=== PATIENT | male | born 1970 | race Caucasian/White ===

== ENCOUNTER 2017-07-09 15:48 | Emergency (ER) | payer MEDICARE, MEDICAID ==
[~2017-07-09] VITALS: Ht 172.7 cm; Wt 90.7 kg
[~2017-07-09 15:48] MED LIST: FENTANYL PA50 MCG/HR TRANSDERM; HYSINGLA ER20 MG PO; OXYCODONE HCL 55 MG PO; OXYCODONE HCL15 MG PO; OXYCODONE HCL30 MG PO; PENICILLIN VK500 MG PO
[2017-07-09] MEDS ORDERED: OXYCODONE HCL 55 MG PO (18:01)
[2017-07-09 18:11] VITALS: BP 128/84
== END 2017-07-09 18:12 | disposition home or self-care (01) ==
LOC: M.ERS 15:48
DX: M54.41 Lumbago with sciatica, right side (principal); G89.29 Other chronic pain; F17.210 Nicotine dependence, cigarettes, uncomplicated; Z88.1 Allergy status to other antibiotic agents; Z88.5 Allergy status to narcotic agent; W18.30XA Fall on same level, unspecified, initial encounter; Y93.89 Activity, other specified; Y92.89 Other specified places as the place of occurrence of the external cause; Y99.8 Other external cause status

== ENCOUNTER 2017-10-13 21:38 | Emergency (ER) | payer MEDICARE, MEDICAID ==
[~2017-10-13] VITALS: Ht 172.7 cm; Wt 90.7 kg
[2017-10-13 22:17] LABS: URINE BILIRUBIN NEGATIVE (Negative); URINE BLOOD NEGATIVE (Negative); URINE CLARITY CLEAR; URINE COLOR YELLOW; URINE GLUCOSE-RANDOM NEGATIVE (Negative); URINE KETONES NEGATIVE (Negative); URINE LEUKOCYTES-REFLEX NEGATIVE (Negative); URINE NITRITE-REFLEX NEGATIVE (Negative); URINE PROTEIN NEGATIVE (Negative); URINE UROBILINOGEN 0.2 E.U./dl (0.2-1.0)
[2017-10-13 22:18] LABS: ABSOLUTE BASOPHILS 0.1 thou/uL (0.0-0.2); ABSOLUTE EOSINOPHILS 0.2 thou/uL (0.0-0.7); ABSOLUTE LYMPHOCYTES 3.5 thou/uL (0.8-5.3); ABSOLUTE MONOCYTES 0.9 thou/uL (0.0-1.2); ABSOLUTE NEUTROPHILS 7.7 thou/uL (1.6-8.1); BASOPHILS 0.4 %; EOSINOPHILS 1.2 %; HEMATOCRIT 50.5 % (42.0-52.0); LYMPHOCYTES 28.5 %; MCH 31.2 pg (26.0-34.0); MCHC 33.7 g/dL (28.0-37.0); MCV 92.7 fL (80.0-100.0); MONOCYTES 7.1 %; MPV 8.8 fl. (7.2-11.1); NUCLEATED RBCS 0 /100WBC; PLATELET COUNT* 317 thou/uL (150-400); POLYS 62.8 %; RBC 5.45 mil/uL (4.50-6.00); RDW-CV 14.3 % (10.5-14.5); WBC 12.3 thou/uL (4.0-11.0)
[2017-10-13 22:24] LABS: CALCIUM 9.4 mg/dL (8.5-10.1); CREATININE 1.1 mg/dL (0.6-1.3); POTASSIUM 3.9 mmol/L (3.5-5.1)
[2017-10-13 22:29] LABS: ALBUMIN 4.3 g/dL (3.4-5.0); TOTAL BILIRUBIN 0.3 mg/dL (<0.1-1.0); TOTAL PROTEIN 7.9 g/dL (6.4-8.2)
[2017-10-13 23:03] LABS: AMP/METHAMP Negative (Negative); BARBITURATES Negative (Negative); BENZODIAZEPINES Negative (Negative); COCAINE Negative (Negative); METHADONE Negative (Negative); OPIATES Negative (Negative); PCP Negative (Negative); THC POSITIVE (Negative)
[2017-10-14] MEDS ORDERED: CIPROFLOXACIN500 M1 PO (00:21)
[2017-10-14] MEDS ORDERED: ZOFRAN ODT4 MG PO (00:21)
[2017-10-14] MEDS ORDERED: FLAGYL500 MG PO (00:21)
[2017-10-14 00:48] VITALS: BP 109/66
== END 2017-10-14 00:49 | disposition home or self-care (01) ==
LOC: M.ERS 21:38
PROVIDERS: Emergency Medicine
DX: K57.92 Diverticulitis of intestine, part unspecified, without perforation or abscess without bleeding (principal); F17.210 Nicotine dependence, cigarettes, uncomplicated; Z88.8 Allergy status to other drugs, medicaments and biological substances

== ENCOUNTER 2017-10-18 21:08 | Inpatient (IN) | payer MEDICARE, MEDICAID ==
[~2017-10-18] VITALS: Ht 172.7 cm; Wt 90.7 kg
--- NOTE | ~2017-10-18 | PROC ---
[address] [address] PROCEDURE REPORT Name: DANIELE SANCHEZ Room: [address] IN M.R.#: [id number] Admission: 10/19/17 Attend Phys: Eder Tavares MD Discharge: 10/22/17 Date of : 74 Report #: [id number] THIS REPORT FOR: //name// For GI report, please see the Provation report in Perceptive 7 content. By: 0650Medical Records Staff ZEESHAN /ERIC
[~2017-10-18 21:08] MED LIST changes: +CIPROFLOXACIN500 M1 PO; +FLAGYL500 MG PO; +ZOFRAN ODT4 MG PO
[2017-10-18 21:40] VITALS: BP 143/121
[2017-10-18 22:04] LABS: ABSOLUTE LYMPHOCYTES 2.5 thou/uL (0.8-5.3); ABSOLUTE MONOCYTES 0.5 thou/uL (0.0-1.2); ABSOLUTE NEUTROPHILS 4.9 thou/uL (1.6-8.1); BASOPHILS 0.6 %; EOSINOPHILS 0.4 %; HEMATOCRIT 48.6 % (42.0-52.0); HEMOGLOBIN 16.8 gm/dL (14.0-18.0); LYMPHOCYTES 31.7 %; MCH 31.5 pg (26.0-34.0); MCHC 34.5 g/dL (28.0-37.0); MCV 91.2 fL (80.0-100.0); MONOCYTES 5.9 %; MPV 8.9 fl. (7.2-11.1); NUCLEATED RBCS 0 /100WBC; PLATELET COUNT* 315 thou/uL (150-400); POLYS 61.4 %; RBC 5.34 mil/uL (4.50-6.00); RDW-CV 14.5 % (10.5-14.5)
[2017-10-18 22:11] LABS: CALCIUM 9.2 mg/dL (8.5-10.1)
[2017-10-18 22:15] LABS: ALBUMIN 4.1 g/dL (3.4-5.0); TOTAL BILIRUBIN 0.4 mg/dL (<0.1-1.0); TOTAL PROTEIN 7.5 g/dL (6.4-8.2)
[2017-10-18 23:42] LABS: URINE BILIRUBIN NEGATIVE (Negative); URINE BLOOD NEGATIVE (Negative); URINE CLARITY CLEAR; URINE COLOR YELLOW; URINE GLUCOSE-RANDOM NEGATIVE (Negative); URINE KETONES NEGATIVE (Negative); URINE LEUKOCYTES-REFLEX NEGATIVE (Negative); URINE NITRITE-REFLEX NEGATIVE (Negative); URINE PROTEIN NEGATIVE (Negative); URINE UROBILINOGEN 0.2 E.U./dl (0.2-1.0)
[2017-10-18 23:49] LABS: AMP/METHAMP Negative (Negative); BARBITURATES Negative (Negative); BENZODIAZEPINES Negative (Negative); COCAINE Negative (Negative); METHADONE Negative (Negative); OPIATES Negative (Negative); PCP Negative (Negative); THC POSITIVE (Negative)
[2017-10-19] VITALS (8 sets, daily range): BP systolic 110–134; BP diastolic 68–95
[2017-10-19 12:05] LABS: HEMATOCRIT 45.4 % (42.0-52.0); HEMOGLOBIN 15.3 gm/dL (14.0-18.0)
--- NOTE | 2017-10-19 14:47 | NUR ---
PT REQUESTED TO HAVE A MEDICATION TO MAKE HIM GO TO SLEEP. THIS NURSE CALLED DR. BERMUDEZ DID PUT IN ORDERS FOR MELATONIN, HOWEVER, DR. BERMUDEZ STATES THAT HE DOES NOT WANT THE PATIENT TO HAVE IT UNTIL LATER TONIGHT. PT NOTIFIED.
--- NOTE | 2017-10-19 18:21 | NUR ---
ARRIVED TO PREOP AREA FOR HOLDING UNTIL ROOM AVAILABLE. SETTLED WITH CALL LIGHT WITH REACH. PT REPORTING CONSTANT SEVERE ABDOMINAL PAIN. TAKING IN CLEAR LIQUIDS. MEDICATING WITH MORPHINE EVERY 2 HOURS ORDERED WITH MINIMAL RELIEF. UP AD ZORAN TO BATHROOM WITH STEADY GAIT. OFFERED ZOFRAN, PT DEFERRED AT THIS TIME.
[2017-10-19 20:07] LABS: HEMATOCRIT 42.2 % (42.0-52.0); HEMOGLOBIN 14.1 gm/dL (14.0-18.0)
[2017-10-20 04:50] LABS: HEMATOCRIT 41.6 % (42.0-52.0); HEMOGLOBIN 13.7 gm/dL (14.0-18.0); MCH 30.7 pg (26.0-34.0); MCHC 32.9 g/dL (28.0-37.0); MCV 93.1 fL (80.0-100.0); MPV 9.2 fl. (7.2-11.1); RBC 4.47 mil/uL (4.50-6.00); RDW-CV 14.3 % (10.5-14.5); WBC 11.6 thou/uL (4.0-11.0)
--- NOTE | 2017-10-20 05:24 | NUR ---
PATIENT AWAKE ALL NIGHT DURING THIS SHIFT. PT REQUESTS PAIN MEDICATION Q2H ORDERED AND RECEIVES MORPHINE 8MG IV EACH TIME. PT RATES PAIN 10/10 EACH TIME. PT WITH NS INFUSING IN RT AC. PT IS UP AD ZORAN. PT ARRIVED TO THIS FLOOR AT 1930. PT INSISTED SEVERAL TIMES THE PACU NURSE WAS GIVING HIM MORPHINE 16MG (DOUBLE THE DOSE) AND FENTANYL 100MG IV. PT BECAME ANGRY AND SAID I SHOULD RECHECK THE ORDER OR CALL THE DR AND/OR THE PREVIOUS NURSE FOR CLARIFICATION AND NOT WITHHOLD HIS PAIN MEDICATION. PT'S GIRLFRIEND ON THE FLOOR AND SHARED THAT PT BECOMES EXTREMELY AGGITATED WHEN IN PAIN. PT UP AD ZORAN IN ROOM. PT TOLD STAFF HE WOULD UNHOOK HIS IV AND GO OUTSIDE TO SMOKE IF HE DECIDED TOO. PT REQUESTED EARLIER IN SHIFT THAT HIS IV BE UNHOOKED SO HE COULD REMOVE HIS T-SHIRT. CARE OF ANOTHER PATIENT WAS COMPLETED AND I WENT INTO ROOM TO UNHOOK PT PER HIS REQUEST. PT HAD ALREADY UNHOOKED HIS IV, REMOVED HIS T-SHIRT AND WAS HOOKING HIS LINE BACK WHEN I ENTERED THE ROOM. PT ANGRY AT THIS TIME. EXPLAINED TO PATIENT THAT I WAS IN ANOTHER ROOM THAT I CAME SOON I COULD. PT'S G/FR STAYED MOST OF THE NIGHT BUT LEFT AROUND 0500 SAYING HE WAS BECOMING AGGITATED. PT HAS NOT CALLED FOR PRN PAIN MEDICATION. FREQUENTLY USED ITEMS AND CALL LIGHT WITHIN REACH. SIDERAILS UPX2. WILL CONTINUE TO MONITOR.
[2017-10-20 05:30] LABS: CALCIUM 8.6 mg/dL (8.5-10.1); CREATININE 0.9 mg/dL (0.6-1.3); MAGNESIUM 1.9 mg/dL (1.8-2.4)
[2017-10-20 08:30] VITALS: BP 107/74
[2017-10-20 13:53] VITALS: BP 107/74
--- NOTE | 2017-10-20 16:28 | NUR ---
PATIENT DOWN FOR EGD THIS AFTERNOON, AWAITING PATIENT RETURN. IV SL THIS AM AFTER 3 BAGS NS. PRN MORPHINE GIVEN Q2 PER ORDERS, MORPHINE DOSE WAS INCREASED THIS AM PER DR. BERMUDEZ. PATIENT GIVEN 12MG IV MORPHINE AND CONTINUED TO COMPLAIN OF PAIN. CLEAR LIQUID DIET THIS AM. UP AD ZORAN, VERBALIZES UNDERSTANDING TO CALL FOR ANY ASSISTANCE NEEDED OUT OF BED.
--- NOTE | 2017-10-20 17:14 | NUR ---
SW attempted to meet pt and he was out of room for an EGD. Pt lives at home with his fiance. No dc needs anticipated according to pt nurse today. KAE to continue to follow.
[2017-10-20 17:15] VITALS: BP 129/82
[2017-10-21 00:42] VITALS: BP 134/93
--- NOTE | 2017-10-21 06:51 | NUR ---
PATIENT AWAKE MOST OF THE NIGHT. PT AMBULATED IN HALLWAY SEVERAL TIMES. PT C/O ABDOMINAL PAIN AND REQUESTED MORPHINE 12MG IV Q2H ORDERED. PT ABLE TO KEEP DINNER DOWN AND IS HOPING TO GO HOME TODAY. FREQUENTLY USED ITEMS WITHIN REACH. WILL CONTINUE TO MONITOR.
[2017-10-21 06:53] LABS: MAGNESIUM 2.2 mg/dL (1.8-2.4); POTASSIUM 4.1 mmol/L (3.5-5.1)
[2017-10-21 08:00] VITALS: BP 142/87
[2017-10-21 19:30] VITALS: BP 138/92
--- NOTE | 2017-10-21 20:14 | NUR ---
ASSUMED CARE THIS AM. A/O X 4, DEMANDING PAIN MEDICATION FREQUENT POSSIBLE PER ORDERS, PACING AROUND UNIT, ON PHONE WITH FIANCE FREQUENTLY. FIANCE DID ARRIVE THIS AFTERNOON, BROUGHT PATIENT YOLANDA IN THE BOX MEAL, OBJECTIVELY UNDER THE INFLUENCE, SLURRING SPEECH, STAGGERED WALK. AFTER PATIENT ATE, C/O LOWER ABD PAIN, SIG OTHER DEMANDING THAT PATIENT RECEIVE IV PAIN MEDICATION. FULBRIGHT NOTIFIED, NO NEW ORDERS. CALL LIGHT IN REACH, CONT POC.
[2017-10-22 04:11] LABS: HEMATOCRIT 43.4 % (42.0-52.0); HEMOGLOBIN 14.8 gm/dL (14.0-18.0); MCH 31.3 pg (26.0-34.0); MCHC 34.1 g/dL (28.0-37.0); MCV 91.8 fL (80.0-100.0); MPV 9.3 fl. (7.2-11.1); RBC 4.72 mil/uL (4.50-6.00); RDW-CV 14.1 % (10.5-14.5); WBC 9.3 thou/uL (4.0-11.0)
[2017-10-22 05:12] LABS: CREATININE 0.9 mg/dL (0.6-1.3); MAGNESIUM 2.1 mg/dL (1.8-2.4); POTASSIUM 3.6 mmol/L (3.5-5.1)
--- NOTE | 2017-10-22 05:34 | NUR ---
PT SLEPT MOST OF SHIFT. ASSESSMENT DOCUMENTED. MEDS GIVEN PER E-SEP. IV PATENT. PT REPORTED UNCONTROLLED PAIN WITH ORAL PAIN MEDICATIONS AND REQUESTED IV PAIN MEDICATIONS, ORDERS RECIEVED. PAIN MEDS GIVEN PER E-SEP. WILL CONTINUE WITH PLAN OF CARE.
[2017-10-22 08:00] VITALS: BP 126/84
--- NOTE | 2017-10-22 12:17 | NUR ---
RESUMED CARE THIS AM. A/O, UP AD ZORAN, PAIN CONTROLLED WITH ORAL MEDICATION, ORDERS RECEIVED FOR DISCHARGE, VSS, ASSESSMENT COMPLETE, NO N/V/D NOTED/REPORTED.
[2017-10-22 12:26] VITALS: BP 126/84
[2017-10-22] MEDS ORDERED: PROTONIX40 M1 PO (12:34)
[2017-10-22] MEDS ORDERED: REGLAN 10 MG TA10 MG PO (12:35)
--- NOTE | 2017-10-24 15:07 | S ---
[place] [address] SURGICAL PATH RPT PROCEDURE Name: JOHN PAUL SANCHEZ Room: [address] IN M.R.#: [id number] Admission: 10/19/17 Date of : 74 Discharge: 10/22/17 Report #: [id number] Path Case #: [id number] PATHOLOGY REPORT COLLECTION DATE: 10/20/2017 RECEIVED DATE: 10/20/2017 SUBMITTING PHYS: Dr. Josette Parks OTHER PHYS: Dr. Eder Tavares SPECIMEN(S) RECEIVED: A.Duodenum B.Submucosal lesion in antrum * * * * * * * * * * * * FINAL DIAGNOSIS: A. Duodenum: - Minimal nonspecific active duodenitis with focal fundic gland metaplasia suggesting peptic ulcer disease, and with prominent Kareem's glands suggesting hyperplasia, negative for granulomas and dysplasia. B. 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 COMMENT: There is no significant submucosal tissue present in the antral biopsy (B). (GIAN:pit; 10/24/2017) Special stain on B: H. pylori immuno PATHOLOGIST: Tito Fernández M.D. REPORT ELECTRONICALLY SIGNED BY: Tito Fernández M.D. DATE/TIME: 10/24/2017 15:07 * * * * * * * * * * * * GROSS PATHOLOGY: A. Received in formalin labeled "John Paul Sanchez, duodenum" is a 0.4 x 0.3 x 0.2 cm portion of pink-buckner soft tissue. The specimen is submitted entirely in cassette A1. B. Received in formalin labeled "John Paul Sanchez, submucosal lesion/antrum" is a 0.5 x 0.4 x 0.2 cm portion of pink-buckner soft tissue. The specimen is submitted entirely in cassette B1. [place] [place] CLINICAL HISTORY: [place] [address] SURGICAL PATH RPT PROCEDURE Name: JOHN PAUL SANCHEZ Room: [address] IN [facility].#: [id number] Admission: 10/19/17 Date of : 74 Discharge: 10/22/17 Report #: [id number] Path Case #: [id number] None provided. INITIAL CPT CODE(S): A; 96880 B; 63227, 25307 Professional services performed by [facility] at [facility] [address] [place] [address] Technical services performed by [facility] at [address] [place] [address], [facility] [address], [place] [address]. [facility] [place] [address] PHONE: [phone] DIRECTOR: Edmundo Benitez M.D. * * * END OF REPORT * * *
--- NOTE | 2017-10-30 15:01 | CON ---
[address] [address] CONSULTATION Name: DANIELE SANCHEZ Room: [address] IN M.R.#: [id number] Admission: 10/19/17 Attend Phys: Eder Tavares MD Discharge: 10/22/17 Date of : 74 Report #: [id number] THIS REPORT FOR: //name// CC: Eder Tavares [facility] physician/PCP DICTATED BY: Yoly Barraza [facility] DATE OF SERVICE: 10/20/2017 The patient does not have a PCP. Please note at the time of this dictation, the patient was seen and physically examined by myself. REASON FOR CONSULTATION: Abdominal pain, nausea and vomiting. HISTORY OF PRESENT ILLNESS: This 47-year-old male who has continued abdominal pain, nausea and vomiting when he starts eating. He complains that it is in the mid epigastric area. He states back in August, he did note that he had some blood in his stool that was really dark in nature. He does state that he has a history back in 2000 in which he had an EGD and colonoscopy done at [facility] and was told that he had gastric ulcers. The patient states he was here in the ER on 10/13, and he was told that he had early onset diverticulitis and was sent home on Cipro and Flagyl. However, in reviewing his CT scan, there is no indication of any bowel wall thickening or stranding noted at that time or with his current CT as well. The patient does have a longstanding history of migraines, in which he uses a stimulator for and has recently restarted smoking marijuana to help with this. ALLERGIES: KEFLEX AND TORADOL. MEDICATIONS: From home included Cipro, Flagyl, aldosterone and oxycodone. PAST MEDICAL HISTORY: Back and neck surgeries, with migraines and history of peptic ulcer disease. FAMILY HISTORY: Maternal uncle stomach cancer. SOCIAL HISTORY: He smokes a pack and a half to 2 packs per day. Denies any recurrent alcohol use, just mainly socially and does admit to marijuana use to help with his headaches. REVIEW OF SYSTEMS: Twelve-point review of systems is essentially negative except what is [place] [address] CONSULTATION Name: DANIELE SANCHEZ Room: [address]#: [id number] Admission: 10/19/17 Attend Phys: Eder Tavares MD Discharge: 10/22/17 Date of : 74 Report #: [id number] PHYSICAL EXAMINATION: VITAL SIGNS: Temperature 36.8, pulse 65, respirations 18, blood pressure 107/74. HEART: Regular rate and rhythm. LUNGS: Clear. ABDOMEN: Soft, positive bowel sounds in all 4 quadrants, with extreme tenderness noted in the epigastric area. LABORATORY DATA: Hemoglobin 14.1, when he came in, he is 13.7. Hematocrit 41.6, white count is 11.6, platelets 269. Sodium 144, potassium 4, chloride 109, CO2 of 26, BUN is 16, creatinine 0.9, GFR is 91 and glucose is 106. CT of the abdomen and pelvis showed mild fatty liver, otherwise essentially negative and noted a lumbar spinal stimulator battery pack and electrodes noted. IMPRESSION: 1. Abdominal pain. 2. Nausea and vomiting. 3. History of ulcers in 2000. 4. History of migraines, has a stimulator. 5. Family history of stomach cancer in maternal uncle. PLAN: 1. EGD today with Dr. Parks. 2. Further recommendations to be made once the procedure has been performed. Thank you for allowing us to participate in this patient's care. Please do not hesitate to call with any questions in regard to this consult. ADDENDUM I personally seen and examined the patient and reviewed labs and imaging study. The patient with symptoms of epigastric pain, nausea, vomiting and dyspepsia. He has previous history of peptic ulcer disease and family history of gastric cancer. The patient also takes significant amount of pain meds for his chronic back and neck pain. His nausea and vomiting may be secondary to narcotic-induced gastroparesis. We will perform an upper endoscopy to rule out gastroduodenal ulcers and make further recommendation. <ELECTRONICALLY SIGNED> By: Josette Parks MD 10/30/17 1501 1148 1516Josette Parks MD /nt
--- NOTE | 2017-10-30 15:01 | CON ---
[address] [address] CONSULTATION Name: DANIELE SANCHEZ Room: [address] IN M.R.#: [id number] Admission: 10/19/17 Attend Phys: Eder Tavares MD Discharge: 10/22/17 Date of : 74 Report #: [id number] THIS REPORT FOR: //name// CC: Eder Tavares FAM physician/PCP DATE OF SERVICE: 10/20/2017 ADDENDUM I personally seen and examined the patient and reviewed labs and imaging study. The patient with symptoms of epigastric pain, nausea, vomiting and dyspepsia. He has previous history of peptic ulcer disease and family history of gastric cancer. The patient also takes significant amount of pain meds for his chronic back and neck pain. His nausea and vomiting may be secondary to narcotic-induced gastroparesis. We will perform an upper endoscopy to rule out gastroduodenal ulcers and make further recommendation. <ELECTRONICALLY SIGNED> By: Josette Parks MD 10/30/17 1501 1631 1936Josette Parks MD /nt
== END 2017-10-22 13:30 | disposition home or self-care (01) | DRG 378 ==
LOC: M.ERS 21:08 → M.TBA-ER 10-19 00:52 → M.3W 10-19 19:43
PROVIDERS: Family Medicine; Internal Medicine; Nurse Practitioner Family; ADMIT Internal Medicine
DX: K25.4 Chronic or unspecified gastric ulcer with hemorrhage (principal); D62 Acute posthemorrhagic anemia; F17.213 Nicotine dependence, cigarettes, with withdrawal; K29.20 Alcoholic gastritis without bleeding; K31.84 Gastroparesis; M47.896 Other spondylosis, lumbar region; K44.9 Diaphragmatic hernia without obstruction or gangrene; L53.8 Other specified erythematous conditions; T37.3X5A Adverse effect of other antiprotozoal drugs, initial encounter; Z88.8 Allergy status to other drugs, medicaments and biological substances; Z79.891 Long term (current) use of opiate analgesic; Z87.442 Personal history of urinary calculi; Z80.0 Family history of malignant neoplasm of digestive organs

== ENCOUNTER 2017-11-12 16:54 | Emergency (ER) | payer MEDICARE, MEDICAID ==
[~2017-11-12] VITALS: Ht 172.7 cm; Wt 90.7 kg
[~2017-11-12 16:54] MED LIST changes: +PROTONIX40 M1 PO; +REGLAN 10 MG TA10 MG PO
[2017-11-12 17:21] LABS: URINE BILIRUBIN NEGATIVE (Negative); URINE BLOOD NEGATIVE (Negative); URINE CLARITY CLEAR; URINE COLOR YELLOW; URINE GLUCOSE-RANDOM NEGATIVE (Negative); URINE KETONES NEGATIVE (Negative); URINE LEUKOCYTES-REFLEX NEGATIVE (Negative); URINE NITRITE-REFLEX NEGATIVE (Negative); URINE PROTEIN NEGATIVE (Negative); URINE UROBILINOGEN 0.2 E.U./dl (0.2-1.0)
[2017-11-12 17:22] LABS: ABSOLUTE BASOPHILS 0.2 thou/uL (0.0-0.2); ABSOLUTE EOSINOPHILS 0.1 thou/uL (0.0-0.7); ABSOLUTE LYMPHOCYTES 2.6 thou/uL (0.8-5.3); ABSOLUTE MONOCYTES 0.7 thou/uL (0.0-1.2); ABSOLUTE NEUTROPHILS 8.6 thou/uL (1.6-8.1); BASOPHILS 1.3 %; EOSINOPHILS 0.9 %; HEMATOCRIT 45.1 % (42.0-52.0); HEMOGLOBIN 15.2 gm/dL (14.0-18.0); LYMPHOCYTES 21.1 %; MCH 31.1 pg (26.0-34.0); MCHC 33.7 g/dL (28.0-37.0); MCV 92.2 fL (80.0-100.0); MONOCYTES 5.9 %; MPV 8.6 fl. (7.2-11.1); NUCLEATED RBCS 0 /100WBC; PLATELET COUNT* 318 thou/uL (150-400); POLYS 70.8 %; RBC 4.89 mil/uL (4.50-6.00); RDW-CV 14.1 % (10.5-14.5); WBC 12.2 thou/uL (4.0-11.0)
[2017-11-12 17:30] LABS: CALCIUM 8.9 mg/dL (8.5-10.1); CREATININE 1.3 mg/dL (0.6-1.3); POTASSIUM 3.6 mmol/L (3.5-5.1)
[2017-11-12 17:30] LABS: AMP/METHAMP Negative (Negative); BARBITURATES Negative (Negative); BENZODIAZEPINES Negative (Negative); COCAINE Negative (Negative); METHADONE Negative (Negative); OPIATES Negative (Negative); PCP Negative (Negative); THC POSITIVE (Negative)
[2017-11-12 17:35] LABS: ALBUMIN 3.9 g/dL (3.4-5.0); TOTAL BILIRUBIN 0.3 mg/dL (<0.1-1.0); TOTAL PROTEIN 7.2 g/dL (6.4-8.2)
[2017-11-12 17:44] VITALS: BP 114/72
== END 2017-11-12 17:45 | disposition home or self-care (01) ==
LOC: M.ERS 16:54
PROVIDERS: Nurse Practitioner Family
DX: R10.30 Lower abdominal pain, unspecified (principal); M54.5 Low back pain; F17.210 Nicotine dependence, cigarettes, uncomplicated; Z87.442 Personal history of urinary calculi; Z88.1 Allergy status to other antibiotic agents; Z88.6 Allergy status to analgesic agent

== ENCOUNTER 2018-07-29 15:27 | Emergency (ER) | payer MEDICARE, MEDICAID ==
[~2018-07-29] VITALS: Ht 170.2 cm; Wt 76.2 kg
[2018-07-29] MEDS ORDERED: CYMBALTA30 MG PO (15:53)
[2018-07-29 16:15] LABS: ABSOLUTE BASOPHILS 0.1 thou/uL (0.0-0.2); ABSOLUTE LYMPHOCYTES 2.1 thou/uL (0.8-5.3); ABSOLUTE MONOCYTES 0.7 thou/uL (0.0-1.2); ABSOLUTE NEUTROPHILS 3.7 thou/uL (1.6-8.1); BASOPHILS 0.8 %; EOSINOPHILS 0.5 %; HEMATOCRIT 41.5 % (42.0-52.0); HEMOGLOBIN 14.2 gm/dL (14.0-18.0); MCH 32.2 pg (26.0-34.0); MCHC 34.2 g/dL (28.0-37.0); MCV 94.3 fL (80.0-100.0); MONOCYTES 10.9 %; NUCLEATED RBCS 0 /100WBC; PLATELET COUNT* 349 thou/uL (150-400); POLYS 55.8 %; RDW-CV 14.5 % (10.5-14.5); WBC 6.7 thou/uL (4.0-11.0)
[2018-07-29 16:26] LABS: CALCIUM 8.8 mg/dL (8.5-10.1); CREATININE 1.2 mg/dL (0.6-1.3); POTASSIUM 3.3 mmol/L (3.5-5.1)
[2018-07-29 16:30] LABS: ALBUMIN 3.3 g/dL (3.4-5.0); TOTAL BILIRUBIN 0.3 mg/dL (<0.1-1.0)
[2018-07-29] MEDS ORDERED: TESSALON PERLE100 MG PO (17:07)
[2018-07-29] MEDS ORDERED: ZPAK PO (17:07)
[2018-07-29] MEDS ORDERED: PROAIR HFA8.5 GM INH (17:07)
[2018-07-29] MEDS ORDERED: MEDROLDOSEPACK PO (17:07)
[2018-07-29 17:18] VITALS: BP 99/57
== END 2018-07-29 17:18 | disposition home or self-care (01) ==
LOC: M.ERS 15:27
PROVIDERS: Physician Assistant
DX: J20.9 Acute bronchitis, unspecified (principal); R91.1 Solitary pulmonary nodule; F17.210 Nicotine dependence, cigarettes, uncomplicated; Z88.1 Allergy status to other antibiotic agents; Z88.8 Allergy status to other drugs, medicaments and biological substances

== ENCOUNTER 2018-08-04 18:35 | Emergency (ER) | payer MEDICARE, MEDICAID ==
[~2018-08-04] VITALS: Ht 172.7 cm; Wt 81.7 kg
[~2018-08-04 18:35] MED LIST changes: +CYMBALTA30 MG PO; +MEDROLDOSEPACK PO; +PROAIR HFA8.5 GM INH; +TESSALON PERLE100 MG PO; +ZPAK PO
[2018-08-04] MEDS ORDERED: BACTRIM DS TAB1 EACH PO (19:11)
[2018-08-04 19:59] VITALS: BP 119/77
== END 2018-08-04 20:01 | disposition home or self-care (01) ==
LOC: M.ERS 18:35
DX: Z48.01 Encounter for change or removal of surgical wound dressing (principal); F17.210 Nicotine dependence, cigarettes, uncomplicated; M51.36 Other intervertebral disc degeneration, lumbar region; Z88.1 Allergy status to other antibiotic agents; Z88.6 Allergy status to analgesic agent; Z87.442 Personal history of urinary calculi

== ENCOUNTER 2019-03-27 14:22 | Emergency (ER) | payer MEDICARE, MEDICAID ==
[~2019-03-27] VITALS: Ht 170.2 cm; Wt 108.0 kg
[~2019-03-27 14:22] MED LIST changes: +BACTRIM DS TAB1 EACH PO; +PERCOCET 10-321 EACH PO; +ZANAFLEX4 MG PO
[2019-03-27] MEDS ORDERED: DILAUDID-H10 MG/1 M1 (15:08)
[2019-03-27 15:11] LABS: ABSOLUTE BASOPHILS 0.1 thou/uL (0.0-0.2); ABSOLUTE EOSINOPHILS 0.1 thou/uL (0.0-0.7); ABSOLUTE LYMPHOCYTES 1.8 thou/uL (0.8-5.3); ABSOLUTE MONOCYTES 0.4 thou/uL (0.0-1.2); ABSOLUTE NEUTROPHILS 3.4 thou/uL (1.6-8.1); EOSINOPHILS 2.2 %; HEMATOCRIT 36.8 % (42.0-52.0); HEMOGLOBIN 12.7 gm/dL (14.0-18.0); LYMPHOCYTES 31.2 %; MCH 31.2 pg (26.0-34.0); MCHC 34.6 g/dL (28.0-37.0); MCV 90.2 fL (80.0-100.0); MONOCYTES 7.1 %; MPV 8.3 fl. (7.2-11.1); NUCLEATED RBCS 0 /100WBC; PLATELET COUNT* 266 thou/uL (150-400); POLYS 58.5 %; RBC 4.08 mil/uL (4.50-6.00); RDW-CV 14.4 % (10.5-14.5); WBC 5.8 thou/uL (4.0-11.0)
[2019-03-27] MEDS ORDERED: GEODON60 MG PO (15:13)
[2019-03-27] MEDS ORDERED: CHANTIX1 MG PO (15:14)
[2019-03-27] MEDS ORDERED: CYMBALTA60 MG PO (15:14)
[2019-03-27 15:16] LABS: ANION GAP 8 mmol/L (7-16); BUN 14 mg/dL (7-18); CALCIUM 8.4 mg/dL (8.5-10.1); CHLORIDE 102 mmol/L (98-107); CO2 28 mmol/L (21-32); CREATININE 1.1 mg/dL (0.6-1.3); GLUCOSE 132 mg/dL (70-99); POTASSIUM 3.6 mmol/L (3.5-5.1); SODIUM 138 mmol/L (136-145)
[2019-03-27 15:26] LABS: PROTIME 9.8 Seconds (9.20-11.50)
[2019-03-27 15:31] LABS: ALBUMIN 3.6 g/dL (3.4-5.0); ALKALINE PHOSPHATASE 84 U/L (46-116); LIPASE 137 U/L (73-393); NT-PRO BRAIN NAT PEPTIDE 19 pg/mL (<300); SGOT 27 U/L (15-37); SGPT 69 U/L (30-65); TOTAL BILIRUBIN 0.3 mg/dL (<0.1-1.0); TOTAL PROTEIN 6.7 g/dL (6.4-8.2); TROPONIN-I LEVEL <0.06 ng/mL (<0.06)
[2019-03-27] MEDS ORDERED: VENTOLIN HFA 1818 GM INH (15:48)
[2019-03-27] MEDS ORDERED: LASIX 20 MG TAB20 MG PO (15:48)
[2019-03-27] MEDS ORDERED: BACTRIM DS TAB1 EACH PO (15:48)
[2019-03-27 16:00] VITALS: BP 123/73
--- NOTE | 2019-03-27 16:41 | EKG ---
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
== END 2019-03-27 16:00 | disposition home or self-care (01) ==
LOC: M.ERS 14:22
PROVIDERS: Emergency Medicine
DX: R60.0 Localized edema (principal); F17.210 Nicotine dependence, cigarettes, uncomplicated; Z88.1 Allergy status to other antibiotic agents; Z88.6 Allergy status to analgesic agent; Z87.442 Personal history of urinary calculi

== ENCOUNTER 2019-06-02 16:27 | Emergency (ER) | payer MEDICARE, MEDICAID ==
[~2019-06-02] VITALS: Ht 170.2 cm; Wt 117.9 kg
[~2019-06-02 16:27] MED LIST changes: +CHANTIX1 MG PO; +CYMBALTA60 MG PO; +DILAUDID-H10 MG/1 M1; +GEODON60 MG PO; +LASIX 20 MG TAB20 MG PO; +VENTOLIN HFA 1818 GM INH
[2019-06-02] MEDS ORDERED: TOPAMAX100 MG PO (17:05)
[2019-06-02 17:48] LABS: ABSOLUTE BASOPHILS 0.1 thou/uL (0.0-0.2); ABSOLUTE EOSINOPHILS 0.1 thou/uL (0.0-0.7); ABSOLUTE MONOCYTES 0.5 thou/uL (0.0-1.2); ABSOLUTE NEUTROPHILS 4.6 thou/uL (1.6-8.1); BASOPHILS 1.4 %; EOSINOPHILS 1.5 %; HEMATOCRIT 40.1 % (42.0-52.0); HEMOGLOBIN 13.8 gm/dL (14.0-18.0); LYMPHOCYTES 27.3 %; MCH 31.2 pg (26.0-34.0); MCHC 34.4 g/dL (28.0-37.0); MCV 90.7 fL (80.0-100.0); MONOCYTES 6.3 %; MPV 8.6 fl. (7.2-11.1); NUCLEATED RBCS 0 /100WBC; PLATELET COUNT* 261 thou/uL (150-400); POLYS 63.5 %; RBC 4.42 mil/uL (4.50-6.00); RDW-CV 13.5 % (10.5-14.5); WBC 7.2 thou/uL (4.0-11.0)
[2019-06-02 17:58] LABS: CALCIUM 8.9 mg/dL (8.5-10.1); CREATININE 0.9 mg/dL (0.6-1.3); POTASSIUM 3.9 mmol/L (3.5-5.1)
[2019-06-02 18:13] LABS: ALBUMIN 3.6 g/dL (3.4-5.0); TOTAL BILIRUBIN 0.2 mg/dL (<0.1-1.0)
[2019-06-02 18:47] LABS: URINE BILIRUBIN NEGATIVE (Negative); URINE BLOOD NEGATIVE (Negative); URINE CLARITY CLEAR; URINE COLOR YELLOW; URINE GLUCOSE-RANDOM NEGATIVE (Negative); URINE KETONES NEGATIVE (Negative); URINE LEUKOCYTES-REFLEX NEGATIVE (Negative); URINE NITRITE-REFLEX NEGATIVE (Negative); URINE PROTEIN NEGATIVE (Negative); URINE SPECIFIC GRAVITY 1.015 (1.005-1.030); URINE UROBILINOGEN 0.2 E.U./dl (0.2-1.0)
[2019-06-02] MEDS ORDERED: LASIX 20 MG TAB20 MG PO (19:09)
[2019-06-02] MEDS ORDERED: COMPRESSION TH1 EACH MISCELL (19:10)
[2019-06-02 19:23] VITALS: BP 126/82
--- NOTE | 2019-06-03 13:11 | EKG ---
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
== END 2019-06-02 19:24 | disposition home or self-care (01) ==
LOC: M.ERS 16:27
PROVIDERS: Nurse Practitioner Family
DX: J20.9 Acute bronchitis, unspecified (principal); R60.0 Localized edema; F41.9 Anxiety disorder, unspecified; F31.9 Bipolar disorder, unspecified; Z87.442 Personal history of urinary calculi; Z98.890 Other specified postprocedural states; F17.210 Nicotine dependence, cigarettes, uncomplicated; Z88.6 Allergy status to analgesic agent; Z88.1 Allergy status to other antibiotic agents

== ENCOUNTER 2019-07-09 16:33 | Emergency (ER) | payer MEDICARE, MEDICAID ==
[~2019-07-09] VITALS: Ht 167.6 cm; Wt 90.7 kg
[~2019-07-09 16:33] MED LIST changes: +COMPRESSION TH1 EACH MISCELL; +TOPAMAX100 MG PO
[2019-07-09] MEDS ORDERED: LIDODERM1 EACH TOP (18:59)
[2019-07-09] MEDS ORDERED: ROBAXIN 750 MG750 MG PO (18:59)
[2019-07-09 19:08] VITALS: BP 110/73
== END 2019-07-09 19:10 | disposition home or self-care (01) ==
LOC: M.ERS 16:33
DX: M54.5 Low back pain (principal); F31.9 Bipolar disorder, unspecified; F41.9 Anxiety disorder, unspecified; F17.210 Nicotine dependence, cigarettes, uncomplicated; Z87.442 Personal history of urinary calculi; Z98.890 Other specified postprocedural states; Z88.1 Allergy status to other antibiotic agents; Z88.6 Allergy status to analgesic agent

== ENCOUNTER → 2020-01-09 | Outpatient (CLI) | payer MEDICARE, MEDICAID ==
[~2020-01-09] MED LIST changes: +LIDODERM1 EACH TOP; +ROBAXIN 750 MG750 MG PO
== END ==
LOC: M.ULTRA 12-25 09:30
PROVIDERS: ATTEND Family Medicine
DX: R10.30 Lower abdominal pain, unspecified (principal)

== ENCOUNTER 2020-02-25 13:30 | Emergency (ER) | payer MEDICARE, MEDICAID ==
[~2020-02-25] VITALS: Ht 170.2 cm; Wt 104.3 kg
[2020-02-25] MEDS ORDERED: OXYCODONE HCL10 MG PO (14:03)
[2020-02-25 14:20] LABS: ABSOLUTE BASOPHILS 0.1 thou/uL (0.0-0.2); ABSOLUTE EOSINOPHILS 0.1 thou/uL (0.0-0.7); ABSOLUTE LYMPHOCYTES 2.6 thou/uL (0.8-5.3); ABSOLUTE MONOCYTES 0.5 thou/uL (0.0-1.2); ABSOLUTE NEUTROPHILS 5.5 thou/uL (1.6-8.1); BASOPHILS 0.9 %; EOSINOPHILS 0.8 %; HEMATOCRIT 47.7 % (42.0-52.0); HEMOGLOBIN 16.2 gm/dL (14.0-18.0); LYMPHOCYTES 29.3 %; MCHC 33.9 g/dL (28.0-37.0); MCV 88.6 fL (80.0-100.0); MONOCYTES 5.8 %; MPV 9.3 fl. (7.2-11.1); NUCLEATED RBCS 0 /100WBC; PLATELET COUNT* 309 thou/uL (150-400); POLYS 63.2 %; RBC 5.39 mil/uL (4.50-6.00); RDW-CV 15.4 % (10.5-14.5); WBC 8.7 thou/uL (4.0-11.0)
[2020-02-25 14:25] LABS: CALCIUM 8.9 mg/dL (8.5-10.1); CREATININE 1.1 mg/dL (0.6-1.3); POTASSIUM 3.9 mmol/L (3.5-5.1)
[2020-02-25 14:30] LABS: ALBUMIN 4.1 g/dL (3.4-5.0); TOTAL BILIRUBIN 0.5 mg/dL (<0.1-1.0); TOTAL PROTEIN 7.9 g/dL (6.4-8.2)
[2020-02-25 15:29] LABS: URINE BILIRUBIN NEGATIVE (Negative); URINE BLOOD NEGATIVE (Negative); URINE CLARITY CLEAR; URINE COLOR YELLOW; URINE GLUCOSE-RANDOM NEGATIVE (Negative); URINE KETONES NEGATIVE (Negative); URINE LEUKOCYTES-REFLEX NEGATIVE (Negative); URINE NITRITE-REFLEX NEGATIVE (Negative); URINE PROTEIN NEGATIVE (Negative); URINE SPECIFIC GRAVITY <= 1.005 (1.005-1.030); URINE UROBILINOGEN 0.2 E.U./dl (0.2-1.0)
[2020-02-25] MEDS ORDERED: ONDANSETRON HCL4 M2 PO (15:34)
[2020-02-25] MEDS ORDERED: CITRATE OF MAG296 M1 PO (15:34)
[2020-02-25 15:48] VITALS: BP 116/62
--- NOTE | 2020-02-26 13:12 | EKG ---
[place] [address] ELECTROCARDIOGRAM REPORT Name: DANIELE SANCHEZ Room: [facility]#: [id number] Admission: 02/25/20 Attend Phys: Discharge: 02/25/20 Date of : 74 Date of Service: 02/25/20 1424 Report #: [id number] THIS REPORT FOR: //name// [facility] ED Test Date: 2020-02-25 Test Time: 14:24:58 Pat Name: DANIELE SANCHEZ Department: Room: Gender: Surveillance Technician: CHRISTINE : 1970 Requested By: Randi Quinn Order Number: [id number] : Darnell Cotter Measurements Intervals [place] Rate: 83 P: 66 MS: 133 QRS: 62 QRSD: 87 T: 59 QT: 385 QTc: 453 Interpretive Statements Sinus rhythm ST elev, probable normal early repol pattern Compared to ECG 06/02/2019 18:26:54 ST (T wave) deviation now present Electronically Signed On 02-26-2020 13:12:38 CDT by Darnell Cotter [email or web address] <ELECTRONICALLY SIGNED> By: Darnell Cotter MD, FACC 02/26/20 1312 1424 1424 Darnell Cotter MD, [facility] /EPI
== END 2020-02-25 15:48 | disposition home or self-care (01) ==
LOC: M.ERS 13:30
PROVIDERS: Nurse Practitioner Family
DX: R11.2 Nausea with vomiting, unspecified (principal); R10.84 Generalized abdominal pain; F31.9 Bipolar disorder, unspecified; F41.9 Anxiety disorder, unspecified; F17.210 Nicotine dependence, cigarettes, uncomplicated; Z87.442 Personal history of urinary calculi; Z88.1 Allergy status to other antibiotic agents; Z88.6 Allergy status to analgesic agent

== ENCOUNTER → 2020-06-23 | Outpatient (CLI) | payer MEDICARE, MEDICAID ==
[~2020-06-23] MED LIST changes: +CITRATE OF MAG296 M1 PO; +ONDANSETRON HCL4 M2 PO; +OXYCODONE HCL10 MG PO
== END ==
LOC: M.ULTRA 08:46
PROVIDERS: ATTEND Family Medicine
DX: R59.1 Generalized enlarged lymph nodes (principal)

== ENCOUNTER 2021-04-14 10:31 | Emergency (ER) | payer MEDICARE, MEDICAID ==
[~2021-04-14] VITALS: Ht 170.2 cm; Wt 104.3 kg
[2021-04-14] MEDS ORDERED: LINZESS72 MCG PO (10:39)
[2021-04-14] MEDS ORDERED: ADVAIR 100-501 EACH INH (10:40)
[2021-04-14] MEDS ORDERED: UBRELVY50 MG PO (10:40)
[2021-04-14] MEDS ORDERED: KRISTALOSE20 GM PO (10:41)
[2021-04-14 11:34] LABS: ABSOLUTE BASOPHILS 0.1 thou/uL (0.0-0.2); ABSOLUTE EOSINOPHILS 0.1 thou/uL (0.0-0.7); ABSOLUTE LYMPHOCYTES 2.1 thou/uL (0.8-5.3); ABSOLUTE MONOCYTES 0.6 thou/uL (0.0-1.2); ABSOLUTE NEUTROPHILS 5.8 thou/uL (1.6-8.1); BASOPHILS 0.9 %; EOSINOPHILS 1.4 %; HEMATOCRIT 43.8 % (42.0-52.0); HEMOGLOBIN 14.9 gm/dL (14.0-18.0); LYMPHOCYTES 24.5 %; MCH 30.6 pg (26.0-34.0); MCV 89.9 fL (80.0-100.0); MPV 8.4 fl. (7.2-11.1); NUCLEATED RBCS 0 /100WBC; PLATELET COUNT* 306 thou/uL (150-400); POLYS 66.2 %; RBC 4.88 mil/uL (4.50-6.00); RDW-CV 14.4 % (10.5-14.5); WBC 8.7 thou/uL (4.0-11.0)
[2021-04-14 11:45] LABS: URINE BILIRUBIN NEGATIVE (Negative); URINE BLOOD NEGATIVE (Negative); URINE CLARITY CLEAR; URINE COLOR YELLOW; URINE GLUCOSE-RANDOM NEGATIVE (Negative); URINE KETONES NEGATIVE (Negative); URINE LEUKOCYTES-REFLEX NEGATIVE (Negative); URINE NITRITE-REFLEX NEGATIVE (Negative); URINE PROTEIN NEGATIVE (Negative); URINE SPECIFIC GRAVITY 1.015 (1.005-1.030); URINE UROBILINOGEN 0.2 E.U./dl (0.2-1.0)
[2021-04-14 11:50] LABS: CALCIUM 8.7 mg/dL (8.5-10.1); POTASSIUM 3.6 mmol/L (3.5-5.1)
[2021-04-14 11:59] LABS: ALBUMIN 3.8 g/dL (3.4-5.0); TOTAL BILIRUBIN 0.2 mg/dL (<0.1-1.0); TOTAL PROTEIN 6.9 g/dL (6.4-8.2)
[2021-04-14] MEDS ORDERED: BENTYL 10 MG CA10 M1 PO (14:33)
[2021-04-14] MEDS ORDERED: DULCOLAX STOOL100 M1 PO (14:33)
[2021-04-14] MEDS ORDERED: PHENERGAN 25 MG25 M1 PO (14:33)
[2021-04-14 14:48] VITALS: BP 153/101
--- NOTE | 2021-04-14 14:52 | EKG ---
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: [facility] : 1970 Requested By: Elio Duque Order Number: [id number] MD: Darnell Cotter Measurements Intervals [place] Rate: 64 P: 72 LA: 128 QRS: 69 QRSD: 90 T: 65 QT: 412 QTc: 425 Interpretive Statements Sinus rhythm Compared to ECG 02/25/2020 14:24:58 ST (T wave) deviation no longer present Electronically Signed On 04-14-2021 14:51:46 CDT by Darnell Cotter [email or web address] <ELECTRONICALLY SIGNED> By: Darnell Cotter MD, [facility] 04/14/21 1451 1103 1103 Darnell Cotter MD, [facility] /EPI
== END 2021-04-14 14:49 | disposition home or self-care (01) ==
LOC: M.ERS 10:31
PROVIDERS: Emergency Medicine Emergency Medical Services
DX: R10.11 Right upper quadrant pain (principal); R10.32 Left lower quadrant pain; R10.31 Right lower quadrant pain; R11.2 Nausea with vomiting, unspecified; K59.00 Constipation, unspecified; R06.02 Shortness of breath; J44.9 Chronic obstructive pulmonary disease, unspecified; F31.9 Bipolar disorder, unspecified; F41.9 Anxiety disorder, unspecified; F17.210 Nicotine dependence, cigarettes, uncomplicated; Z98.890 Other specified postprocedural states; Z87.442 Personal history of urinary calculi; Z79.899 Other long term (current) drug therapy; Z88.1 Allergy status to other antibiotic agents; Z88.6 Allergy status to analgesic agent; Z91.048 Other nonmedicinal substance allergy status